=== PATIENT | male | born 1940 | race Caucasian/White ===

== ENCOUNTER → 2017-08-26 | Outpatient (CLI) | payer OTHER ==
[~2017-08-26] MED LIST: 1-ME1LIQ PO; ASPI1TAB57 PO; ATOR10TA15 PO; GLUCTAB PO; LORTA5 PO; LOSA100T3 PO; LOSA100T7 PO; OXYB5TAB PO; POTA25PA2 PO; ST J81CH PO; ULTR50TA PO; VITA10004 PO; VITA100064 PO; VITA20002 PO
== END ==
LOC: CPRE 11:17
PROVIDERS: ATTEND Orthopaedic Surgery Sports Medicine
DX: M17.12 Unilateral primary osteoarthritis, left knee (principal)